=== PATIENT | female | born 1945 | race Caucasian/White ===

== ENCOUNTER 2020-10-14 02:29 | Inpatient (IN) | payer MEDICAID ==
[~2020-10-14] VITALS: Ht 152.4 cm; Wt 69.9 kg
--- NOTE | 2020-10-14 02:35 | NUR ---
PT BIBRA C/O SOB AND SAT 79%. PT AAOX4 BREATHING EVENLY WITH NRB @15LPM SATING 95%. PT ATTACHED TO MONITOR AND POX. RT HAND 20G INITATED. BLOOD DRAWN AND SENT TO LAB. DAUGHTER AT BEDSIDE FOR TRANSLATION. PT GIVEN BLANKET AND CALL LIGHT WITHIN REACH
--- NOTE | 2020-10-14 02:40 | NUR ---
COVID SWAB SENT TO LAB
[2020-10-14 03:09] LABS: CALCIUM, SERUM 9.3 mg/dL (8.5-10.1); CARBON DIOXIDE 24 mmol/L (21-32); CHLORIDE 101 mmol/L (98-107); CREATININE 0.9 mg/dL (0.6-1.3); GLUCOSE 237 mg/dL (74-106); POTASSIUM 4.2 mmol/L (3.5-5.1); SODIUM SERUM 136 mmol/L (136-145); UREA NITROGEN, BLOOD 28 mg/dL (7-18)
[2020-10-14 03:14] LABS: BASOPHILS # (AUTO) 0.1 K/uL (0.0-0.2); BASOPHILS % (AUTO) 0.5 % (0.0-2.0); HEMATOCRIT 39 % (33-45); HEMOGLOBIN 12.9 g/dL (11.5-14.8); LYMPHOCYTES # (AUTO) 3.6 K/uL (0.8-4.8); LYMPHOCYTES % (AUTO) 22.7 % (20.0-44.0); MEAN CORPUSCULAR HGB CONC 33 g/dl (31.0-36.0); MEAN CORPUSCULAR VOLUME 89 fL (82-100); MONOCYTES # (AUTO) 1.2 K/uL (0.1-1.30); MONOCYTES % (AUTO) 7.3 % (2.0-12.0); NEUTROPHILS # (AUTO) 10.6 K/uL (1.8-8.9); NEUTROPHILS % (AUTO) 66.5 % (43.0-81.0); PLATELET COUNT (AUTO) 311 K/uL (150-450)
[2020-10-14 03:21] LABS: ALANINE AMINOTRANSFERASE 15 U/L (12-78); ALBUMIN 3.7 g/dL (3.4-5.0); ALKALINE PHOSPHATASE 126 U/L (46-116); ASPARTATE AMINOTRANSFERASE 13 U/L (15-37); BILIRUBIN,DIRECT 0.1 mg/dL (0.0-0.2); BILIRUBIN,TOTAL 0.4 mg/dL (0.2-1.0); TOTAL PROTEIN, SERUM 7.9 g/dL (6.4-8.2)
--- NOTE | 2020-10-14 03:25 | NUR ---
URINE SENT TO LAB
[2020-10-14 03:40] LABS: BILIRUBIN,URINE Negative (NEGATIVE); COLOR,URINE YELLOW (YELLOW); LEUKOCYTE ESTERASE ,URINE Trace (NEGATIVE); NITRITE, URINE Negative (NEGATIVE); PROTEIN,URINE 100 mg/dl (NEGATIVE); UGLUCOSE 100 MG/DL mg/dL (NEGATIVE); UROBILINOGEN,URINE 0.2 EU/dL (0.2)
--- NOTE | 2020-10-14 03:45 | NUR ---
PT PLACED ON 4L O2 VIA NC. SATING 95%
[2020-10-14 03:50] LABS: BACTERIA,URINE Rare /HPF (None Seen); SQUAMOUS EPITHELIAL CELL,UR Rare /HPF (None Seen); WBC,URINE 0-2 /HPF (0-3)
--- NOTE | 2020-10-14 03:54 | NUR ---
TAKEN TO RADIOLOGY
[2020-10-14] MEDS ORDERED: FUROSEMIDE 40 MG/4 ML VIAL IV ONE (04:30)
[2020-10-14] MEDS ORDERED: AZITHROMYCIN 500 MG in IV D5W 250 ML IV ONE (04:30)
[2020-10-14] MEDS ORDERED: CEFTRIAXONE 1GM BAG (ER ONLY) 1 GM/50 ML PIGGYBACK IV ONE (04:30)
[2020-10-14] MEDS ORDERED: CEFTRIAXONE 1GM BAG (ER ONLY) 50 ML IV ONE (04:33)
[2020-10-14] MEDS ORDERED: AZITHROMYCIN 500 MG VIAL ONE (04:33)
[2020-10-14] MEDS ORDERED: FUROSEMIDE 40 MG/4 ML VIAL ONE (04:33)
--- NOTE | 2020-10-14 05:58 | NUR ---
DR. DOVER PAGED PER ER ORDER.
[2020-10-14] MEDS ORDERED: AZITHROMYCIN 500 MG in IV D5W 250 ML IV SCH (06:00)
[2020-10-14] MEDS ORDERED: MAGNESIUM HYDROXIDE 30 ML UDC PO PRN (06:30)
[2020-10-14] MEDS ORDERED: ZOLPIDEM TARTRATE 5 MG TABLET PO PRN (06:30)
[2020-10-14] MEDS ORDERED: ACETAMINOPHEN 325 MG TABLET PO PRN (06:30)
[2020-10-14] MEDS ORDERED: Z GUARD REMEDY 2 OZ OINT TP PRN (06:30)
[2020-10-14] MEDS ORDERED: MAG HYDROX/AL HYDROX/SIMETH 30 ML UDC PO PRN (06:30)
[2020-10-14] MEDS ORDERED: ONDANSETRON HCL/PF 4 MG/2 ML VIAL IVP PRN (06:30)
--- NOTE | 2020-10-14 07:05 | NUR ---
gave report to bell Malik for larry
[2020-10-14] MEDS: PANTOPRAZOLE 40 MG TABLET.DR PO SCH (07:30)
[2020-10-14] MEDS ORDERED: METO25TA6 PO (08:41)
[2020-10-14] MEDS ORDERED: METF-442 PO (08:41)
[2020-10-14] MEDS ORDERED: AMLO10TA4 PO (08:41)
[2020-10-14] MEDS ORDERED: FUROSEMIDE 40 MG/4 ML VIAL IV SCH (09:00)
[2020-10-14] MEDS ORDERED: PANTOPRAZOLE 40 MG TABLET.DR PO ONE (09:59)
[2020-10-14] MEDS ORDERED: ENOXAPARIN SODIUM 40 MG/0.4 ML DISP.SYRIN SQ ONE (09:59)
[2020-10-14] MEDS: ENOXAPARIN SODIUM 40 MG/0.4 ML DISP.SYRIN SQ SCH (10:00)
[2020-10-14] MEDS ORDERED: DEXTROSE 50%-WATER 50 ML DISP.SYRIN IV PRN (10:00)
--- NOTE | 2020-10-14 10:18 | NUR ---
patient 02sat on room air 95%.
--- NOTE | 2020-10-14 12:12 | NUR ---
GOT BED 105.
--- NOTE | 2020-10-14 12:15 | NUR ---
RN NOTE PT REPORT GIVEN BY SATINDER POST FROM ER
--- NOTE | 2020-10-14 12:15 | NUR ---
report given to Adi RAJAN for larry.
[2020-10-14 12:30] VITALS: BP 118/67
--- NOTE | 2020-10-14 12:35 | NUR ---
PT TRANSPORTED TO UNIT ON GURNEY WITH EMT AND RN AT BEDSIDE W/ ACLS PROTOCOL. NAD NOTED DURING TRANSPORT.
--- NOTE | 2020-10-14 12:40 | NUR ---
RN NOTE PT BROUGHT IN FROM ED ON NC 3L, SPO2 97%, NO SIGNS OF SOB OR RESP DISTRESS. PT MONTSERRATIAN SPEAKING, DAUGHTER WITH PT, A/Ox3/3 PER DAUGHTER. PT DENIES PAIN AT THIS TIME. PT SKIN IS INTACT AND PT IS ABLE TO AMBULATE WITH STEADY GAIT. PT HAS RT HAND #20 SL, FLUSHED, PATENT AND INTACT WITH NO SIGNS OF INFECTION/INFILTRATION. ALL PT SAFETY PRECAUTIONS IN PLACE, WILL CONT TO MONITOR
[2020-10-14] MEDS: BLOOD SUGAR DIAGNOSTIC 1 EACH STRIP IN SCH ×3 (13:26→22:24)
[2020-10-14] MEDS: INSULIN REGULAR, HUMAN 100 UNIT/ML 3 ML VIAL SQ PRN ×3 (13:26→22:52)
[2020-10-14 16:00] VITALS: BP 132/71
--- NOTE | 2020-10-14 19:10 | NUR ---
RN CLOSING NOTE PT IN STABLE CONDITION, ON NC 3L WITH NO SIGNS OF RESP DISTRESS OR SOB. ALL PT SAFETY PRECAUTIONS IN PLACE, DARIAN ENDORSED TO ROUND BONER RN
[2020-10-14 20:00] VITALS: BP 130/70
--- NOTE | 2020-10-14 20:30 | NUR ---
RN OPENING NOTE RECEIVED PT AWAKE IN BED. A/O X4. PT ON 3L O2 VIA NC SATS 95%. NO SOB OR S/S OF RESPIRATORY DISTRESS NOTED. PT HAS NO C/O PAIN OR DISCOMFORT AT THIS TIME. IV ACCESS IN RIGHT HAND #20, INTACT AND PATENT. SAFETY MEASURES MAINTAINED. BED IN LOWEST LOCKED POSITION, HOB ELEVATED, SIDE RAILS UP X2. CALL LIGHT AND TABLE WITHIN REACH. WILL CONTINUE WITH PLAN OF CARE.
[2020-10-14] MEDS: METOPROLOL TARTRATE 25 MG TABLET PO SCH (21:16)
[2020-10-14] MEDS ORDERED: INSULIN REGULAR, HUMAN 100 UNIT/ML 3 ML VIAL ONE (22:29)
[2020-10-15] VITALS: BP 118/63
[2020-10-15 04:00] VITALS: BP 130/59
[2020-10-15 06:01] LABS: BASOPHILS # (AUTO) 0.1 K/uL (0.0-0.2); BASOPHILS % (AUTO) 0.7 % (0.0-2.0); EOSINOPHILS % (AUTO) 3.5 % (0.0-6.0); HEMATOCRIT 37 % (33-45); HEMOGLOBIN 12.2 g/dL (11.5-14.8); LYMPHOCYTES # (AUTO) 2.8 K/uL (0.8-4.8); LYMPHOCYTES % (AUTO) 30.6 % (20.0-44.0); MEAN CORPUSCULAR HGB CONC 34 g/dl (31.0-36.0); MEAN CORPUSCULAR VOLUME 89 fL (82-100); MONOCYTES # (AUTO) 0.7 K/uL (0.1-1.30); NEUTROPHILS # (AUTO) 5.2 K/uL (1.8-8.9); NEUTROPHILS % (AUTO) 57.2 % (43.0-81.0); PLATELET COUNT (AUTO) 274 K/uL (150-450); RED BLOOD CELL COUNT(AUTO) 4.11 MIL/uL (4.0-5.2); WHITE BLOOD COUNT (AUTO) 9.1 K/uL (4.3-11.0)
[2020-10-15 06:26] LABS: CALCIUM, SERUM 8.8 mg/dL (8.5-10.1); MAGNESIUM 2.2 mg/dL (1.8-2.4); PHOSPHORUS 5.3 mg/dL (2.5-4.9); POTASSIUM 4.1 mmol/L (3.5-5.1)
--- NOTE | 2020-10-15 06:28 | NUR ---
RN CLOSING NOTE PT IS AWAKE IN BED. A/O X4. PT ON 3L O2 VIA NC SATS 94%. NO SOB OR S/S OF RESPIRATORY DISTRESS NOTED. PT ON EXTERNAL UTILITY ARBORIST READING SR 84. PT HAS NO C/O PAIN OR DISCOMFORT AT THIS TIME. IV ACCESS IS INTACT, PATENT, AND FLUSHING WELL. ALL NEEDS HAVE BEEN MET. SAFETY PRECAUTIONS MAINTAINED AT ALL TIMES. BED IN LOWEST LOCKED POSITION, HOB ELEVATED, SIDE RAILS UP X2. CALL LIGHT AND TABLE WITHIN REACH. WILL ENDORSE TO ONCOMING NURSE FOR DARIAN.
[2020-10-15 06:29] LABS: THYROID STIMULATING HORMONE 1.154 uIU/mL (0.358-3.74)
[2020-10-15 08:00] VITALS: BP 130/68
[2020-10-15] MEDS ORDERED: CEFTRIAXONE 1 G in IV D5W 50 ML IV SCH (08:00)
--- NOTE | 2020-10-15 08:05 | NUR ---
RN note: Pt received alert awake oriented X 4. On RA, no breathing distress noted. Denies pain/discomfort. Safety measures observed. IV site intact, clean & dry. Encourage pt to use call light for assistance. Call light within reach. Continue to monitor.
[2020-10-15] MEDS: INSULIN REGULAR, HUMAN 100 UNIT/ML 3 ML VIAL SQ PRN ×2 (08:31→11:40)
[2020-10-15] MEDS: ENOXAPARIN SODIUM 40 MG/0.4 ML DISP.SYRIN SQ SCH (08:31)
[2020-10-15] MEDS: PANTOPRAZOLE 40 MG TABLET.DR PO SCH (08:32)
[2020-10-15] MEDS: BLOOD SUGAR DIAGNOSTIC 1 EACH STRIP IN SCH ×2 (08:32→11:40)
[2020-10-15] MEDS: METOPROLOL TARTRATE 25 MG TABLET PO SCH (08:33)
[2020-10-15] MEDS ORDERED: FUROSEMIDE 40 MG/4 ML VIAL IV SCH (09:00)
[2020-10-15] MEDS ORDERED: ATORVASTATIN 40 MG TABLET PO SCH (10:30)
[2020-10-15 12:00] VITALS: BP 119/63
--- NOTE | 2020-10-15 14:50 | NUR ---
RN Note: Pt discharge home alert awake oriented X3. On RA, no breathing distress noted. Denies pain/discomfort. IV removed, applied pressure dressing. Discharge instructions given by Annie gardiner RN. Discharge package given to daughter Marjorie & pt. Both verbalized understanding. Left from floor with all belongings including with prescription & DME walker.
== END 2020-10-15 12:30 | disposition home or self-care (01) | DRG 720 ==
LOC: ER 02:43 → TRANSITION 07:57 → TELE1 12:18
PROVIDERS: ADMIT Nurse Practitioner Acute Care; ATTEND Nurse Practitioner Acute Care
DX: A41.9 Sepsis, unspecified organism (principal); J96.01 Acute respiratory failure with hypoxia; I50.33 Acute on chronic diastolic (congestive) heart failure; E44.0 Moderate protein-calorie malnutrition; J15.9 Unspecified bacterial pneumonia; I11.0 Hypertensive heart disease with heart failure; E11.65 Type 2 diabetes mellitus with hyperglycemia; I34.0 Nonrheumatic mitral (valve) insufficiency; E66.9 Obesity, unspecified; Z87.891 Personal history of nicotine dependence; E78.5 Hyperlipidemia, unspecified; M62.50 Muscle wasting and atrophy, not elsewhere classified, unspecified site; I35.0 Nonrheumatic aortic (valve) stenosis; Z68.30 Body mass index [BMI] 30.0-30.9, adult; Z79.84 Long term (current) use of oral hypoglycemic drugs; Z20.822 Contact with and (suspected) exposure to COVID-19; Z71.3 Dietary counseling and surveillance; Z79.899 Other long term (current) drug therapy; R79.89 Other specified abnormal findings of blood chemistry
CPT/HCPCS: 36415; 71045-TC; 80048-TC; 80061-TC; 80076-TC; 81001; 82962-TC; 83605-TC; 83735-TC; 83880; 84100-TC; 84443-TC; 84484-TC; 85025-TC; 85730-TC; 87040-TC; 87081-TC; 87086-TC; 87186-TC; 93307-TC; 97116-TC; 97530-TC; C9803; G0378; J0456; J0696; J1650; J1815; J1940; J7050; J7060; U0003